=== PATIENT | female | born 1955 | race Caucasian/White ===

== ENCOUNTER 2021-11-04 13:50 | Emergency (ER) | payer MEDICARE, OTHER | END 2021-11-04 16:00 | disposition home or self-care (01) | LOC: FER 13:50 | DX: M79.604 Pain in right leg (principal); I10 Essential (primary) hypertension; Z79.899 Other long term (current) drug therapy; Z88.1 Allergy status to other antibiotic agents | CPT/HCPCS: 93971 ==